=== PATIENT | male | born 1970 | race Caucasian/White ===

== ENCOUNTER 2016-10-04 13:10 | Emergency (ER) | payer BC | END 2016-10-04 14:08 | disposition home or self-care (01) | LOC: SED 13:10 | DX: S01.312A Laceration without foreign body of left ear, initial encounter (principal); W22.8XXA Striking against or struck by other objects, initial encounter; Z23 Encounter for immunization; F17.210 Nicotine dependence, cigarettes, uncomplicated | CPT/HCPCS: 12011; 90471; 90715; 99282 ==